=== PATIENT | male | born 1955 | race Caucasian/White ===

== ENCOUNTER 2017-06-24 13:06 | Emergency (ER) | payer MEDICAID, OTHER ==
[~2017-06-24] VITALS: Ht 144.8 cm; Wt 57.0 kg
[~2017-06-24 13:06] MED LIST: HYDR-3240 PO; IBUP100T6 PO; NICO1PAT5 TD; ONDA4TAB13 SL; OXYC5TAB3 PO; PANT40TA5 PO; PENI500T PO; SUCR1ORA11 PO; TRAM50TA2 PO; TRAZ100T15 PO
[2017-06-24] MEDS ORDERED: SODIUM CHLORIDE 0.9% 1,000ML IVBOLUS ONE (14:00)
[2017-06-24] MEDS ORDERED: ONDANSETRON 2MG/ML, 2ML IVPush ONE (14:00)
[2017-06-24 14:05] LABS: HEMATOCRIT 51.1 % (39.2-51.8); HEMOGLOBIN 16.7 g/dL (13.7-18.0); WHITE BLOOD COUNT 10.1 x10^3/uL (3.4-10)
[2017-06-24 14:19] LABS: BLOOD UREA NITROGEN 14 mg/dL (7-18)
[2017-06-24 14:21] LABS: ASPARTATE AMINO TRANSFERASE 22 U/L (15-37)
[2017-06-24 16:44] VITALS: BP 107/73
[2017-06-24 17:02] LABS: PATH.CAST-FLAG NOT PRESENT; SPERM-FLAG NOT PRESENT; SRC-FLAG NOT PRESENT; XTAL-FLAG NOT PRESENT; YLC-FLAG NOT PRESENT
== END 2017-06-24 17:09 | disposition left against medical advice (07) ==
LOC: ED 17:03
DX: R10.9 Unspecified abdominal pain (principal); R11.2 Nausea with vomiting, unspecified; R19.7 Diarrhea, unspecified
CPT/HCPCS: 36415; 80053; 81001; 83690; 85025; 99284

== ENCOUNTER 2017-10-28 13:48 | Emergency (ER) | payer MEDICAID, OTHER ==
[~2017-10-28] VITALS: Ht 144.8 cm; Wt 57.0 kg
[~2017-10-28 13:48] MED LIST changes: +NICO-487 TD; -NICO1PAT5 TD
[2017-10-28 15:05] LABS: HEMATOCRIT 46.5 % (39.2-51.8); HEMOGLOBIN 15.4 g/dL (13.7-18.0); WHITE BLOOD COUNT 7.4 x10^3/uL (3.4-10)
[2017-10-28 15:15] LABS: ASPARTATE AMINO TRANSFERASE 19 U/L (15-37); BLOOD UREA NITROGEN 24 mg/dL (7-18)
[2017-10-28 15:16] LABS: DAU SCREEN DISCLAIMER
[2017-10-28 15:22] LABS: IS PT STATUS REG ER OR PRE ER? YES
[2017-10-28 17:11] VITALS: BP 115/78
== END 2017-10-28 17:13 | disposition home or self-care (01) ==
LOC: ED 14:31
DX: M54.12 Radiculopathy, cervical region (principal); M62.830 Muscle spasm of back
CPT/HCPCS: 36415; 71010; 72125; 80053; 80307; 81001; 84484; 85025; 93005; 99285; G0479

== ENCOUNTER 2018-08-17 15:53 | Emergency (ER) | payer BC, MEDICAID ==
[~2018-08-17] VITALS: Ht 144.8 cm; Wt 57.0 kg
[~2018-08-17 15:53] MED LIST changes: +TRAZ-137 PO; -TRAZ100T15 PO
[2018-08-17] MEDS ORDERED: ASPIRIN 81 MG TABLET CHEW PO ONE (16:30)
[2018-08-17] MEDS ORDERED: ASPIRIN 81 MG TABLET CHEW ONE (16:32)
[2018-08-17 16:47] LABS: BASOPHILS # (AUTO) 0.04 x10^3/uL (0-0.1); BASOPHILS % (AUTO) 1 % (0-1); EOSINOPHILS # (AUTO) 0.13 x10^3/uL (0-0.4); EOSINOPHILS % (AUTO) 2 % (1-7); LYMPHOCYTES # (AUTO) 1.86 x10^3/uL (1-3.4); LYMPHOCYTES % (AUTO) 23 % (22-44); MD NO; MEAN CORPUSCULAR HGB CONC 33.6 g/dL (33.2-36.2); MEAN CORPUSCULAR VOLUME 86.3 fL (81-97); MEAN PLATELET VOLUME 8.3 fL (7.4-10.4); MONOCYTES # (AUTO) 0.48 x10^3/uL (0.2-0.8); MONOCYTES % (AUTO) 6 % (2-9); NEUTROPHILS # (AUTO) 5.77 x10^3/uL (1.8-6.8); NEUTROPHILS % (AUTO) 70 % (42-75); PLATELET COUNT 247 x10^3/uL (130-400); RED BLOOD COUNT 5.34 x10^6/uL (4.38-5.82); RED CELL DISTRIBUTION WIDTH 13.5 % (9.4-14.8)
[2018-08-17 16:52] LABS: ALANINE AMINOTRANSFERASE 27 U/L (12-78); ALBUMIN 3.7 g/dL (3.4-5.0); ANION GAP 8 mmol/L (5-15); CHLORIDE 110 mmol/L (98-107); CREATININE 1.24 mg/dL (0.7-1.3)
[2018-08-17 16:56] LABS: ALKALINE PHOSPHATASE 78 U/L (45-117); BILIRUBIN,TOTAL 0.5 mg/dL (0.2-1.0); TOTAL PROTEIN 6.9 g/dL (6.4-8.2); TROPONIN I < 0.015 ng/mL (0.000-0.045)
[2018-08-17 17:47] VITALS: BP 102/73
== END 2018-08-17 17:47 | disposition home or self-care (01) ==
LOC: ED 17:41
DX: J44.1 Chronic obstructive pulmonary disease with (acute) exacerbation (principal); F41.1 Generalized anxiety disorder
CPT/HCPCS: 36415; 71046; 80053; 84484; 85025; 93005; 99285

== ENCOUNTER 2018-09-12 07:44 | Emergency (ER) | payer MEDICAID ==
[~2018-09-12] VITALS: Ht 144.8 cm; Wt 60.0 kg
[2018-09-12] MEDS ORDERED: ALBUTEROL/IPRATROPIUM 2.5MG/0.5MG, 3 ML NPPB ONE (08:30)
[2018-09-12] MEDS ORDERED: ALBUTEROL/IPRATROPIUM 2.5MG/0.5MG, 3 ML ONE (08:56)
[2018-09-12 09:08] LABS: BASOPHILS # (AUTO) 0.06 x10^3/uL (0-0.1); BASOPHILS % (AUTO) 1 % (0-1); EOSINOPHILS % (AUTO) 3 % (1-7); LYMPHOCYTES # (AUTO) 1.63 x10^3/uL (1-3.4); LYMPHOCYTES % (AUTO) 21 % (22-44); MD NO; MEAN CORPUSCULAR HEMOGLOBIN 28.9 pg (27.5-34.5); MEAN CORPUSCULAR HGB CONC 33.3 g/dL (33.2-36.2); MEAN CORPUSCULAR VOLUME 86.7 fL (81-97); MEAN PLATELET VOLUME 8.2 fL (7.4-10.4); MONOCYTES # (AUTO) 0.65 x10^3/uL (0.2-0.8); MONOCYTES % (AUTO) 8 % (2-9); NEUTROPHILS # (AUTO) 5.17 x10^3/uL (1.8-6.8); NEUTROPHILS % (AUTO) 67 % (42-75); PLATELET COUNT 210 x10^3/uL (130-400); RED BLOOD COUNT 4.96 x10^6/uL (4.38-5.82); RED CELL DISTRIBUTION WIDTH 13.7 % (9.4-14.8)
[2018-09-12 09:17] LABS: ALBUMIN 3.6 g/dL (3.4-5.0); ANION GAP 8 mmol/L (5-15); CHLORIDE 111 mmol/L (98-107); CREATININE 1.36 mg/dL (0.7-1.3)
[2018-09-12 09:20] LABS: TROPONIN I < 0.015 ng/mL (0.000-0.045)
[2018-09-12 10:31] VITALS: BP 128/68
== END 2018-09-12 10:59 | disposition home or self-care (01) ==
LOC: ED 08:33
DX: J44.1 Chronic obstructive pulmonary disease with (acute) exacerbation (principal); F41.1 Generalized anxiety disorder
CPT/HCPCS: 36415; 71046; 80048; 82040; 83880; 84484; 85025; 93005; 94640; 99285; J7512; J7620

== ENCOUNTER 2018-12-23 17:06 | Emergency (ER) | payer MEDICAID ==
[~2018-12-23] VITALS: Ht 144.8 cm; Wt 56.2 kg
[~2018-12-23 17:06] MED LIST changes: +HYDR25TA11 PO; +LORA1TAB PO
[2018-12-23 17:23] VITALS: BP 133/83
[2018-12-23] MEDS ORDERED: DIPH,PERTUSS(ACELL),TET VAC/PF 0.5 ML IM-VACC ONE ×2 (17:30→17:54)
== END 2018-12-23 18:12 | disposition home or self-care (01) ==
LOC: ED 17:38
DX: S80.871A Other superficial bite, right lower leg, initial encounter (principal); J44.9 Chronic obstructive pulmonary disease, unspecified; F41.1 Generalized anxiety disorder; F17.200 Nicotine dependence, unspecified, uncomplicated; W54.0XXA Bitten by dog, initial encounter; Y93.89 Activity, other specified; Y92.89 Other specified places as the place of occurrence of the external cause; Y99.8 Other external cause status
CPT/HCPCS: 90471; 90715

== ENCOUNTER 2019-01-20 06:25 | Emergency (ER) | payer MEDICAID ==
[~2019-01-20] VITALS: Ht 144.8 cm; Wt 57.7 kg
[2019-01-20 06:55] VITALS: BP 147/84
--- NOTE | 2019-01-20 06:58 | NUR ---
RECEIVED REPORT FROM ERI RING RN. [place].
== END 2019-01-20 07:22 | disposition home or self-care (01) ==
LOC: ED 07:21
DX: R19.7 Diarrhea, unspecified (principal); R10.9 Unspecified abdominal pain; F41.1 Generalized anxiety disorder; Z87.19 Personal history of other diseases of the digestive system; Z87.11 Personal history of peptic ulcer disease
CPT/HCPCS: 99283

== ENCOUNTER 2019-01-31 11:30 | Emergency (ER) | payer MEDICAID ==
[~2019-01-31] VITALS: Ht 144.8 cm; Wt 56.0 kg
[2019-01-31 13:02] LABS: BASOPHILS # (AUTO) 0.03 x10^3/uL (0-0.1); BASOPHILS % (AUTO) 0 % (0-1); EOSINOPHILS # (AUTO) 0.16 x10^3/uL (0-0.4); EOSINOPHILS % (AUTO) 1 % (1-7); LYMPHOCYTES # (AUTO) 1.12 x10^3/uL (1-3.4); LYMPHOCYTES % (AUTO) 6 % (22-44); MD NO; MEAN CORPUSCULAR HEMOGLOBIN 29.5 pg (27.5-34.5); MEAN CORPUSCULAR HGB CONC 33.6 g/dL (33.2-36.2); MEAN CORPUSCULAR VOLUME 87.8 fL (81-97); MEAN PLATELET VOLUME 8.3 fL (7.4-10.4); MONOCYTES # (AUTO) 0.65 x10^3/uL (0.2-0.8); MONOCYTES % (AUTO) 4 % (2-9); NEUTROPHILS # (AUTO) 15.59 x10^3/uL (1.8-6.8); NEUTROPHILS % (AUTO) 89 % (42-75); PLATELET COUNT 241 x10^3/uL (130-400); RED BLOOD COUNT 5.66 x10^6/uL (4.38-5.82); RED CELL DISTRIBUTION WIDTH 13.8 % (9.4-14.8)
[2019-01-31 13:07] LABS: ANION GAP 4 mmol/L (5-15); CALCIUM 8.9 mg/dL (8.5-10.1); CHLORIDE 110 mmol/L (98-107); CREATININE 1.23 mg/dL (0.7-1.3)
--- NOTE | 2019-01-31 13:18 | NUR ---
TO ROOM AT THIS TIME. STEADY GAIT.
--- NOTE | 2019-01-31 13:59 | NUR ---
THIS IS A 63 YO MALE C/O N/V/D AND ABD CRAMPING SINCE EARLIER THIS AFTERNOON. PT IS SLIGHTLY TENDER UPON PALPATION OF RLQ/LLQ. PT AO X 4. SKIN PWD. RESP EVEN AND EQAUL. URINE SAMPLE OBTAINED AND WALKED TO LAB. PT ON CONT BP AND O2 MONITORS. CALL LIGHT WITHIN REACH. WILL CONT TO MONITOR PT.
[2019-01-31] MEDS ORDERED: SODIUM CHLORIDE FLUSH 10ML SYR IVF ONE (14:00)
[2019-01-31 14:10] LABS: ALANINE AMINOTRANSFERASE 30 U/L (12-78); ALBUMIN 4.1 g/dL (3.4-5.0)
[2019-01-31 14:12] LABS: ALKALINE PHOSPHATASE 69 U/L (45-117); BILIRUBIN, DIRECT < 0.1 mg/dL (0.1-0.2); BILIRUBIN,INDIRECT 0.4 mg/dL (0.0-2.0); BILIRUBIN,TOTAL 0.5 mg/dL (0.2-1.0); TOTAL PROTEIN 7.3 g/dL (6.4-8.2)
[2019-01-31 14:23] LABS: CULTURE INDICATED? YES; MICROSCOPIC INDICATED
[2019-01-31] MEDS ORDERED: OMNIPAQUE 350 MG/ML, 100ML BOTTLE ONE (14:32)
--- NOTE | 2019-01-31 14:33 | NUR ---
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 22G L FA- LEFT IN PLACE
== END 2019-01-31 16:09 | disposition home or self-care (01) ==
LOC: ED 13:42
DX: R11.2 Nausea with vomiting, unspecified (principal); R19.7 Diarrhea, unspecified; R10.30 Lower abdominal pain, unspecified; J44.9 Chronic obstructive pulmonary disease, unspecified; F41.1 Generalized anxiety disorder
CPT/HCPCS: 36415; 74022; 74177; 80048; 80076; 81001; 82040; 83690; 85025; 87086; 99284; Q9967

== ENCOUNTER 2020-01-15 11:24 | Emergency (ER) | payer MEDICAID ==
[~2020-01-15] VITALS: Ht 144.8 cm; Wt 56.3 kg
[~2020-01-15 11:24] MED LIST changes: +HYDR-826 PO; -HYDR25TA11 PO; +SERT25TA PO; -SUCR1ORA11 PO; +SUCR1ORA14 PO; -TRAZ-137 PO; +TRAZ-175 PO
[2020-01-15 11:26] VITALS: BP 103/80
--- NOTE | 2020-01-15 11:40 | NUR ---
PT STATES HE SLIPPED AND ALL AND LANDED ON LEFT KNEE, PREVIOUS ARTHORSCOPY SURGERY.
[2020-01-15] MEDS ORDERED: IBUPROFEN 200 MG TABLET PO ONE (12:30)
[2020-01-15] MEDS ORDERED: IBUPROFEN 600 MG TABLET ONE (12:40)
--- NOTE | 2020-01-15 12:44 | NUR ---
PT MEDICTED PER TASK RN.
--- NOTE | 2020-01-15 12:44 | NUR ---
Patient/Caregiver given discharge instructions and they have confirmed that they understand the instructions. Patient ambulatory with steady gait.
== END 2020-01-15 13:06 | disposition home or self-care (01) ==
LOC: ED 11:30
DX: S83.92XA Sprain of unspecified site of left knee, initial encounter (principal); J44.9 Chronic obstructive pulmonary disease, unspecified; W01.0XXA Fall on same level from slipping, tripping and stumbling without subsequent striking against object, initial encounter; Y93.89 Activity, other specified; Y92.009 Unspecified place in unspecified non-institutional (private) residence as the place of occurrence of the external cause; Y99.8 Other external cause status
CPT/HCPCS: 29105; 29505; 99283

== ENCOUNTER → 2020-01-19 | Outpatient (CLI) | payer MEDICAID | END | disposition home or self-care (01) | LOC: RAD 16:54 | PROVIDERS: ATTEND Physician Assistant Surgical | DX: M17.12 Unilateral primary osteoarthritis, left knee (principal) ==

== ENCOUNTER 2021-07-15 05:15 | Emergency (ER) | payer MEDICAID ==
[~2021-07-15] VITALS: Ht 149.9 cm; Wt 48.0 kg
[~2021-07-15 05:15] MED LIST changes: +HYDR-2214 PO; -HYDR-3240 PO; -NICO-487 TD; +NICO-587 TD; -OXYC5TAB3 PO; +OXYC5TAB98 PO; -PANT40TA5 PO; +PANT40TA6 PO
[2021-07-15] MEDS ORDERED: DICYCLOMINE 20 MG TABLET ONE (05:29)
[2021-07-15] MEDS ORDERED: DICYCLOMINE 10 MG CAPSULE PO ONE (05:30)
[2021-07-15] MEDS ORDERED: MORPHINE SULFATE 4 MG/ML, 1ML IVPush PRN (05:30)
[2021-07-15] MEDS ORDERED: MORPHINE SULFATE 4 MG/ML, 1ML ONE (05:30)
[2021-07-15] MEDS ORDERED: SODIUM CHLORIDE 0.9% 1,000ML IVBOLUS ONE (05:30)
--- NOTE | 2021-07-15 06:13 | NUR ---
SPOKE WITH LAB, SOMEBODY ON THE WAY TO DRAW PT.
--- NOTE | 2021-07-15 06:26 | NUR ---
pt feeling anxious about possibly having covid, pt requesting to have covid test done. spoke with erp. covid test ordered
[2021-07-15 06:38] LABS: BASOPHILS % (AUTO) 1 % (0-1); EOSINOPHILS % (AUTO) 1 % (1-7); LYMPHOCYTES % (AUTO) 2 % (22-44); MEAN CORPUSCULAR HEMOGLOBIN 29.6 pg (27.5-34.5); MEAN CORPUSCULAR HGB CONC 33.4 g/dL (33.2-36.2); MEAN PLATELET VOLUME 7.6 fL (7.4-10.4); MONOCYTES % (AUTO) 3 % (2-9); NEUTROPHILS % (AUTO) 93 % (42-75); PLATELET COUNT 173 x10^3/uL (130-400); RED BLOOD COUNT 5.44 x10^6/uL (4.38-5.82); RED CELL DISTRIBUTION WIDTH 13.9 % (9.4-14.8)
[2021-07-15 06:46] LABS: ALANINE AMINOTRANSFERASE 22 U/L (12-78); ALBUMIN 3.3 g/dL (3.4-5.0); ANION GAP 3 mmol/L (5-15); CALCIUM 7.7 mg/dL (8.5-10.1); CHLORIDE 114 mmol/L (98-107); CREATININE 1.02 mg/dL (0.7-1.3)
[2021-07-15 06:48] LABS: ALKALINE PHOSPHATASE 75 U/L (45-117); BILIRUBIN,TOTAL 0.7 mg/dL (0.2-1.0); TOTAL PROTEIN 6.5 g/dL (6.4-8.2)
--- NOTE | 2021-07-15 06:50 | NUR ---
REC BS REPORT PT RESTING
--- NOTE | 2021-07-15 07:20 | NUR ---
PT AWARE OF GOING TO CT
[2021-07-15] MEDS ORDERED: OMNIPAQUE 350 MG/ML, 100ML BOTTLE ONE (07:50)
[2021-07-15 10:35] VITALS: BP 142/78
== END 2021-07-15 10:37 | disposition home or self-care (01) ==
LOC: ED 10:08
DX: J18.9 Pneumonia, unspecified organism (principal); R11.2 Nausea with vomiting, unspecified; R19.7 Diarrhea, unspecified; F17.200 Nicotine dependence, unspecified, uncomplicated; Z20.822 Contact with and (suspected) exposure to COVID-19
CPT/HCPCS: 36415; 74177; 80053; 83690; 85025; 93005; 96361; 96374; 99285; J2270; J7030; Q9967; U0003; U0005